=== PATIENT | female | born 1965 | race Caucasian/White ===

== ENCOUNTER → 2016-10-14 | Outpatient (CLI) | payer OTHER ==
--- NOTE | 2016-10-14 11:22 | REPMRS ---
Patient History The patient states she had a clinical breast exam in 09/2016. Family history of pancreatic cancer in paternal grandfather, colorectal cancer in maternal grandfather at age 50 or over, breast cancer in maternal grandmother at age 50 or over, and breast cancer in paternal grandmother at age 50 or over. Benign cyst aspiration of the right breast, 2006. Benign excisional biopsy of the left breast, 1983. Taking estrogen for 5 years. Digital Woman Screen Mammo: October 14, 2016 - Exam #: [id number] Bilateral CC and MLO view(s) were taken. Technologist: Laura Acosta Technologist Prior study comparison: October 06, 2015, digital woman screen mammo performed at [facility]. August 15, 2014, digital woman screen mammo performed at [facility]. August 12, 2013, digital woman screen mammo performed at [facility]. FINDINGS: The breast tissue is heterogeneously dense. This may lower the sensitivity of mammography. There is a moderate amount of heterogeneously dense fibroglandular tissue which is fairly symmetric. There is no interval development of dominant mass, architectural distortion, or clustered microcalcification typical of malignancy. There has been no change in the appearance of the mammogram from the prior studies. ASSESSMENT: BI-RADS/ACR category 1 mammogram. Negative. Recommendation Routine screening mammogram of both breasts in 1 year (for women over age 40). This mammogram was interpreted with the aid of an FDA-approved computer-aided dectection system. Electronically Signed By: Wilfrid Wise MD 10/14/16 [id number]
== END ==
LOC: M WHC 08:25
PROVIDERS: ATTEND Nurse Practitioner Family
DX: Z12.31 Encounter for screening mammogram for malignant neoplasm of breast (principal); R92.2 Inconclusive mammogram; Z80.0 Family history of malignant neoplasm of digestive organs; Z92.0 Personal history of contraception

== ENCOUNTER 2017-02-05 10:59 | Outpatient (CLI) | payer OTHER ==
[~2017-02-05] VITALS: Ht 160 cm; Wt 64.9 kg
[~2017-02-05 10:59] MED LIST: GARC500T PO; HAIR1CHW PO; LIDOCAINE 2% INJ 100 MG/5 ML SDV (FOR ANES.) As Ordered ONE; MELO15TA4 PO; MULT1TAB10 PO; PROPOFOL 200 MG/20 ML VIAL As Ordered ONE; VIVE0.05 TD
[2017-02-05] MEDS ORDERED: NS 1,000 ML IV SCH (11:15)
[2017-02-05] MEDS ORDERED: PROPOFOL 200 MG/20 ML VIAL As Ordered ONE (12:13)
--- NOTE | 2017-02-05 12:18 | ROOR ---
Patient Name: Bozena Suarez Procedure Date: 02/05/2017 11:41 AM Date of : 1965 Age: 51 Room: [facility] Gender: Female Note Status: Finalized Procedure: Total Colonoscopy to cecum + Biopsy and Cold Snare Polypectomy + Hemoclips Indications: Screening for colorectal malignant neoplasm Providers: Dilshad Hough MD Referring MD: SUN Moore Requesting Provider: Medicines: Monitored Anesthesia Care Complications: No immediate complications. Procedure: Pre-Anesthesia Assessment: - The heart rate, respiratory rate, oxygen saturations, blood pressure, adequacy of pulmonary ventilation, and response to care were monitored throughout the procedure. The Colonoscope was introduced through the anus and advanced to the cecum, identified by appendiceal orifice and ileocecal valve. The colonoscopy was performed without difficulty. The patient tolerated the procedure well. The quality of the bowel preparation was good. Findings: The perianal and digital rectal examinations were normal. Non-bleeding internal hemorrhoids were found during retroflexion. The hemorrhoids were small and Grade I (internal hemorrhoids that do not prolapse). A medium polyp was found in the rectum. The polyp was pedunculated. The polyp was removed with a cold snare. Resection and retrieval were complete. To prevent bleeding after the polypectomy, two hemostatic clips were successfully placed (MR conditional). There was no bleeding at the end of the procedure. A large polyp was found at 60 cm proximal to the anus. The polyp was carpet-like. The polyp was removed with a jumbo cold forceps. Resection and retrieval were complete. The exam was otherwise without abnormality on direct and retroflexion views. Impression: - Non-bleeding internal hemorrhoids. - One medium polyp in the rectum, removed with a cold snare. Resected and retrieved. Clips (MR conditional) were placed. - One large polyp at 60 cm proximal to the anus, removed with a jumbo cold forceps. Resected and retrieved. - The examination was otherwise normal on direct and retroflexion views. - The exam was otherwise normal to the cecum. Recommendation: - Patient has a contact number available for emergencies. The signs and symptoms of potential delayed complications were discussed with the patient. Return to normal activities tomorrow. Written discharge instructions were provided to the patient. - High fiber diet. - Discharge patient to home. - Continue present medications. - Await pathology results. - Telephone GI clinic for pathology results in 1 week. - Repeat colonoscopy for surveillance based on pathology results. - Return to referring physician. - The findings and recommendations were discussed with the patient's family. Dilshad Hough MD Dilshad Hough MD 02/05/2017 12:18:22 PM This report has been signed electronically. Number of Addenda: 0 Note Initiated On: 02/05/2017 11:41 AM Estimated Blood Loss: Estimated blood loss: none.
[2017-02-05 12:38] VITALS: BP 120/75
== END 2017-02-05 12:41 | disposition home or self-care (01) ==
LOC: M OPP 10:59
PROVIDERS: ATTEND Internal Medicine Gastroenterology
DX: Z12.11 Encounter for screening for malignant neoplasm of colon (principal); K62.1 Rectal polyp; D12.4 Benign neoplasm of descending colon; K64.0 First degree hemorrhoids; Z88.8 Allergy status to other drugs, medicaments and biological substances; Z79.899 Other long term (current) drug therapy; Z87.891 Personal history of nicotine dependence; Z80.3 Family history of malignant neoplasm of breast; Z80.0 Family history of malignant neoplasm of digestive organs

== ENCOUNTER → 2017-10-20 | Outpatient (CLI) | payer OTHER | LOC: M WHC 13:55 | DX: Z12.31 Encounter for screening mammogram for malignant neoplasm of breast (principal); Z80.3 Family history of malignant neoplasm of breast; Z92.23 Personal history of estrogen therapy ==

== ENCOUNTER 2018-03-25 06:51 | Day surgery (SDC) | payer OTHER ==
[~2018-03-25 06:51] MED LIST changes: -GARC500T PO; -HAIR1CHW PO; -LIDOCAINE 2% INJ 100 MG/5 ML SDV (FOR ANES.) As Ordered ONE; -MELO15TA4 PO; -MULT1TAB10 PO; +NS 1,000 ML IV; -PROPOFOL 200 MG/20 ML VIAL As Ordered ONE; -VIVE0.05 TD
[2018-03-25] MEDS ORDERED: PROPOFOL 200 MG/20 ML VIAL As Ordered (08:11)
[2018-03-25] MEDS ORDERED: LIDOCAINE 2% INJ 100 MG/5 ML SDV (FOR ANES.) As Ordered (08:11)
== END 2018-03-25 08:36 | disposition home or self-care (01) ==
LOC: M OPP 06:51
DX: Z09 Encounter for follow-up examination after completed treatment for conditions other than malignant neoplasm (principal); D37.4 Neoplasm of uncertain behavior of colon; Z86.010 Personal history of colon polyps; K62.1 Rectal polyp; K64.0 First degree hemorrhoids; Z87.891 Personal history of nicotine dependence; Z88.8 Allergy status to other drugs, medicaments and biological substances; Z79.899 Other long term (current) drug therapy; Z80.0 Family history of malignant neoplasm of digestive organs; Z80.3 Family history of malignant neoplasm of breast
CPT/HCPCS: 45380

== ENCOUNTER → 2018-10-28 | Outpatient (CLI) | payer OTHER ==
[~2018-10-28] MED LIST changes: +GARC500T PO; +HAIR1CHW PO; +MELO15TA28 PO; +MULT1TAB10 PO; -NS 1,000 ML IV; +OMEP40CA2 PO; +VIVE0.05 TD
--- NOTE | 2018-10-28 10:53 | REP ---
BILATERAL SCREENING MAMMOGRAM WITH 3D TOMOSYNTHESIS: Family history of breast cancer paternal grandmother over age 50. [facility] lifetime risk of breast cancer 10.5%. COMPARISON: 10/20/2017 as well as other prior exams. Breast parenchyma is heterogeneously dense bilaterally. There appears to be a new oval well circumscribed nodule in the right breast anteriorly and slightly medially measuring approximately 1.2 cm in maximum diameter. No other definite new nodules are seen bilaterally. There is a stable nodule probably representing an intramammary lymph node in the upper outer quadrant of the left breast. Other normal appearing axillary lymph nodes are seen. IMPRESSION: ACR 0 incomplete. New oval well circumscribed nodule anterior right breast slightly medially. Recommend spot compression views and ultrasound to further evaluate. ACR 0 incomplete. This mammogram was interpreted with the aid of an FDA-approved computer-aided detection system. The patient states she had a clinical breast exam in 10/2018. The patient letter being requested is M0.
== END ==
LOC: M WHC 08:00
PROVIDERS: ATTEND Nurse Practitioner Family
DX: N63.10 Unspecified lump in the right breast, unspecified quadrant (principal); R92.2 Inconclusive mammogram

== ENCOUNTER → 2018-11-06 | Outpatient (CLI) | payer OTHER ==
--- NOTE | 2018-11-06 16:25 | REP ---
DIAGNOSTIC MAMMOGRAM RIGHT BREAST WITH RIGHT BREAST ULTRASOUND: Multiple spot compression views right breast performed and correlated with the recent mammogram of 10/28/2018 and compared to multiple other prior studies. Today the additional views confirm the presence of the a well-circumscribed nodule approximately 1.2 cm in diameter anteromedially in the right breast. Real-time sonographic evaluation of the right breast performed. At 3-o'clock there is an oval simple cyst which appears benign, measuring approximately 9 x 7 x 9 mm. There is an adjacent complex cystic area which appears to contain solid components, measuring 1.0 x 0.8 x 0.9 cm. A bilobed 5 mm cyst is seen at 4-o'clock. IMPRESSION: ACR 4 suspicious. The nodule on the recent mammogram corresponds to a simple cyst. However, there is an adjacent complex cystic and solid nodule which appears somewhat suspicious. Ultrasound guided biopsy of that complex cystic and solid nodule is recommended. BIRADS 4: BI-RADS/ACR category 4 mammogram. Suspicious Abnormality - biopsy should be considered. This mammogram was interpreted with the aid of an FDA-approved computer-aided detection system. The patient letter being requested is M4. Electronically Signed by Raul Valadez MD 11/11/2018 11:43 A
== END ==
LOC: M RAD 12:22
PROVIDERS: ATTEND Nurse Practitioner Family
DX: N60.01 Solitary cyst of right breast (principal); N63.10 Unspecified lump in the right breast, unspecified quadrant

== ENCOUNTER → 2019-08-23 | Outpatient (CLI) | payer OTHER ==
[~2019-08-23] MED LIST changes: -OMEP40CA2 PO; +OMEP40CA97 PO
--- NOTE | 2019-08-23 17:16 | REP ---
Right elbow series: Four views. History: Injury in a fall. Rule out fracture. Findings: Four views right elbow demonstrate positive anterior posterior fat pad sign indicative of hemarthrosis. There is a slightly depressed radial head fracture visible on the lateral views. No proximal ulnar or distal humeral fracture is appreciated. Impression: Intra-articular fracture of proximal radial head with hemarthrosis. Electronically Signed by Dante Wise MD 08/23/2019 05:08 P
--- NOTE | 2019-08-24 07:38 | REP ---
Right wrist series: Four views. History: Sprain, rule out fracture. Findings: Four views of the right wrist show no evidence of fracture or subluxation. Joint spaces are preserved. There are dystrophic soft-tissue calcifications adjacent to the informed bone. Impression: No fracture or subluxation seen. Electronically Signed by Dante Wise MD 08/23/2019 04:54 P
== END ==
LOC: M RAD 16:17
PROVIDERS: ATTEND Physician Assistant Medical
DX: M25.531 Pain in right wrist (principal)

== ENCOUNTER → 2019-12-26 | Outpatient (CLI) | payer OTHER ==
--- NOTE | 2019-12-26 15:35 | REP ---
Clinical: Pain. Technique: AP, lateral, bilateral oblique views left fifth digit . Findings: The osseous structures and joint spaces are intact and normal. There is no evidence for acute fracture or dislocation. Surrounding soft tissues are unremarkable. No subcutaneous emphysema or radiodense foreign body. Impression: No acute fracture or dislocation. Electronically Signed by Dalton Granados MD 12/26/2019 03:26 P
== END ==
LOC: M WUC 15:05
PROVIDERS: ATTEND Physician Assistant
DX: M25.542 Pain in joints of left hand (principal)

== ENCOUNTER → 2021-01-26 | Outpatient (CLI) | payer OTHER ==
[~2021-01-26] MED LIST changes: +FISH1000 PO; +OMEP40CA4 PO; -OMEP40CA97 PO; +PRES10CA2 PO
== END ==
LOC: M LABSMTC 11:05
PROVIDERS: ATTEND Anesthesiology
DX: Z20.828 Contact with and (suspected) exposure to other viral communicable diseases (principal); Z11.59 Encounter for screening for other viral diseases

== ENCOUNTER 2021-01-31 06:53 | Day surgery (SDC) | payer OTHER ==
[~2021-01-31] VITALS: Ht 160 cm; Wt 62.6 kg
[~2021-01-31 06:53] MED LIST changes: +NS 1,000 ML IV ONE
[2021-01-31] MEDS ORDERED: fentaNYL 100 MCG/2 ML INJECTION (J3010) As Ordered ONE (07:00)
[2021-01-31] MEDS ORDERED: propofoL 200 MG/20 ML VIAL As Ordered ONE (07:00)
[2021-01-31] MEDS ORDERED: LIDOCAINE 2% 100MG/5ML SDV (FOR ANES.) As Ordered ONE (07:00)
--- NOTE | 2021-01-31 07:43 | ROOR ---
Patient Name: Bozena Suarez Procedure Date: 01/31/2021 7:26 AM Date of : 1965 Age: 55 Room: [facility] Gender: Female Note Status: Finalized Procedure: Upper Endoscopy + Biopsies Indications: Heartburn, Exclusion of Jansen's esophagus Providers: Dilshad Hough MD Referring MD: SUN ROBBINS Requesting Provider: Medicines: Monitored Anesthesia Care Complications: No immediate complications. Procedure: Pre-Anesthesia Assessment: - The heart rate, respiratory rate, oxygen saturations, blood pressure, adequacy of pulmonary ventilation, and response to care were monitored throughout the procedure. The Endoscope was introduced through the mouth, and advanced to the second part of duodenum. The upper GI endoscopy was accomplished without difficulty. The patient tolerated the procedure well. Findings: The Z-line was irregular and was found 35 cm from the incisors. Multiple biopsies were obtained with cold forceps for evaluation to rule out Jansen's Esophagus randomly at the gastroesophageal junction. Localized mild inflammation characterized by congestion (edema), erosions and erythema was found in the gastric antrum. Biopsies were taken with a cold forceps for Helicobacter pylori testing. The exam of the duodenum was otherwise normal. Impression: - Z-line irregular, 35 cm from the incisors. - Mucosal changes suspicious for gastritis. Biopsied. - Multiple biopsies were obtained at the gastroesophageal junction. - The examination was otherwise normal. Recommendation: - Patient has a contact number available for emergencies. The signs and symptoms of potential delayed complications were discussed with the patient. Return to normal activities tomorrow. Written discharge instructions were provided to the patient. - High fiber diet. - Discharge patient to home. - Follow an antireflux regimen. - Continue present medications. - Await pathology results. - Telephone GI clinic for pathology results in 1 week. - The findings and recommendations were discussed with the patient's family. Procedure Code(s): --- Professional --- 51173, Esophagogastroduodenoscopy, flexible, transoral; with biopsy, single or multiple Diagnosis Code(s): --- Professional --- K22.8, Other specified diseases of esophagus K31.89, Other diseases of stomach and duodenum R12, Heartburn CPT copyright 2019 [employer]. All rights reserved. The codes documented in this report are preliminary and upon bread and pastry baker review may be revised to meet current compliance requirements. Dilshad Hough MD Dilshad Hough MD 01/31/2021 7:42:30 AM Electronically signed by Dilshad Hough MD Number of Addenda: 0 Note Initiated On: 01/31/2021 7:26 AM Estimated Blood Loss: Estimated blood loss: none.
--- NOTE | 2021-01-31 08:00 | ROOR ---
Patient Name: Bozena Suarez Procedure Date: 01/31/2021 7:27 AM Date of : 1965 Age: 55 Room: [facility] Gender: Female Note Status: Finalized Procedure: Total Colonoscopy to Cecum + ileoscopy Indications: High risk colon cancer surveillance: Personal history of colonic polyps, Last colonoscopy: 2017 Providers: Dilshad Hough MD Referring MD: SUN ROBBINS Requesting Provider: Medicines: Monitored Anesthesia Care Complications: No immediate complications. Procedure: Pre-Anesthesia Assessment: - The heart rate, respiratory rate, oxygen saturations, blood pressure, adequacy of pulmonary ventilation, and response to care were monitored throughout the procedure. The Colonoscope was introduced through the anus and advanced to the cecum, identified by appendiceal orifice and ileocecal valve. The colonoscopy was performed without difficulty. The patient tolerated the procedure well. The quality of the bowel preparation was excellent. Findings: The perianal and digital rectal examinations were normal. Non-bleeding internal hemorrhoids were found during retroflexion. The hemorrhoids were small and Grade I (internal hemorrhoids that do not prolapse). No other significant abnormalities were identified in a careful examination of the remainder of the colon. The exam was otherwise without abnormality on direct and retroflexion views. The terminal ileum appeared normal. The exam was otherwise without abnormality. Impression: - Non-bleeding internal hemorrhoids. - The examination was otherwise normal on direct and retroflexion views. - The examined portion of the ileum was normal. - The examination was otherwise normal. - No specimens collected. - The exam was otherwise normal to the cecum. Recommendation: - Patient has a contact number available for emergencies. The signs and symptoms of potential delayed complications were discussed with the patient. Return to normal activities tomorrow. Written discharge instructions were provided to the patient. - High fiber diet. - Discharge patient to home. - Continue present medications. - Repeat colonoscopy in 5 years for surveillance. - Return to referring physician. - The findings and recommendations were discussed with the patient's family. Procedure Code(s): --- Professional --- G0105, Colorectal cancer screening; colonoscopy on individual at high risk Diagnosis Code(s): --- Professional --- Z86.010, Personal history of colonic polyps K64.0, First degree hemorrhoids CPT copyright 2019 [employer]. All rights reserved. The codes documented in this report are preliminary and upon sod farmer review may be revised to meet current compliance requirements. Dilshad Hough MD Dilshad Hough MD 01/31/2021 8:00:29 AM Electronically signed by Dilshad Hough MD Number of Addenda: 0 Note Initiated On: 01/31/2021 7:27 AM Estimated Blood Loss: Estimated blood loss: none.
[2021-01-31 08:26] VITALS: BP 118/71
== END 2021-01-31 08:35 | disposition home or self-care (01) ==
LOC: M OPP 06:53
PROVIDERS: ATTEND Internal Medicine Gastroenterology
DX: Z12.11 Encounter for screening for malignant neoplasm of colon (principal); Z86.010 Personal history of colon polyps; K64.0 First degree hemorrhoids; K22.8 Other specified diseases of esophagus; K31.89 Other diseases of stomach and duodenum; R12 Heartburn; Z79.810 Long term (current) use of selective estrogen receptor modulators (SERMs); Z88.8 Allergy status to other drugs, medicaments and biological substances
CPT/HCPCS: 43239; 45378; 88305; J3010

== ENCOUNTER → 2022-01-04 | Outpatient (CLI) | payer OTHER ==
[~2022-01-04] MED LIST changes: -NS 1,000 ML IV ONE
[2022-01-04 19:06] LABS: BASO % 0.6 % (0.0-1.0); EOS # 0.1 10^3/uL (0.0-0.5); EOS % 1.5 % (0.0-3.0); HEMATOCRIT 38.7 % (36.0-47.0); HEMOGLOBIN 12.4 g/dl (12.0-15.5); LYMPH # 2.2 10^3/uL (1.5-5.0); LYMPH % 40.1 % (24.0-44.0); MEAN CORPUSCULAR HEMOGLOBIN 28.4 pg (27.0-33.0); MEAN CORPUSCULAR VOLUME 88.8 fl (80.0-96.0); MONO # 0.5 10^3/uL (0.0-0.8); MONO % 9.1 % (2.0-8.0); NEUTROPHILS # 2.6 10^3/uL (1.5-8.5); NEUTROPHILS % 48.5 % (36.0-66.0); PLATELET COUNT, AUTOMATED 311 10^3/uL (150-450); RED BLOOD COUNT 4.36 10^6/uL (4.00-5.40); WHITE BLOOD COUNT 5.4 10^3/uL (4.0-10.0)
[2022-01-04 19:08] LABS: C REACTIVE PROTEIN QUANTITATIV < 0.30 MG/DL (0.00-0.30); RHEUMATOID FACTOR QUANT < 10.0 IU/ML (<15.0)
[2022-01-04 19:24] LABS: INR 0.97; PROTHROMBIN TIME 13.3 SECONDS (12.7-14.5)
[2022-01-04 19:39] LABS: ERYTHROCYTE SEDIMENTATION RATE 11 mm/hr (0-30)
[2022-01-07 11:07] LABS: ANTINUCLEAR ANTIBODIES DIRECT Negative (Negative)
== END ==
LOC: M WUC 15:47
PROVIDERS: ATTEND Physician Assistant
DX: R22.32 Localized swelling, mass and lump, left upper limb (principal)

== ENCOUNTER → 2022-04-30 | Outpatient (REF) | payer OTHER | LOC: M LAB REF 15:08 | PROVIDERS: ATTEND Orthopaedic Surgery | DX: M67.442 Ganglion, left hand (principal) ==